=== PATIENT | female | born 1960 | race Caucasian/White ===

== ENCOUNTER 2021-09-29 05:38 | Emergency (ER) | payer OTHER, SELFPAY ==
--- NOTE | ~2021-09-29 | CT_ITS ---
EXAMINATION: CT brain wo con, CT cervical spine wo con EXAM DATE: 09/29/2021 06:13 INDICATION: Fall, head injury. Hit head on bathtub. TECHNIQUE: Spiral CT of the head was performed without contrast. Axial, coronal and sagittal images were reviewed. Spiral CT of the cervical spine was performed without contrast. Axial images were rev iewed. Coronal and sagittal reformatted images were also reviewed. The dose-length product (DLP) fo r this examination was 605.33 (accession [id number]), 421.96 (accession [id number]) mGy-cm. The exposure was tailored according to patient size, and iterative reconstruction (ASIR) was used as additional dose reduction technique. There is no prior study for comparison. FINDINGS: HEAD CT: There is no acute intraparenchymal hemorrhage. No evidence of intraparenchymal brain mass l esion. No evidence of acute infarction. There is mild to moderate prominence of the sulci and vent ricles related to cerebral atrophy. There is no mass effect or midline shift. There is no obstruct germain hydrocephalus suspected. There are no extra-axial collections. There are no acute calvarial fra ctures. The orbits are unremarkable. Soft tissue is unremarkable. The visualized sinuses and masto id air cells are well aerated. CERVICAL CT: Moderate to severe cervical arthropathy. There is no evidence of acute cervical fracture . The odontoid process is intact. Pre-dens space is normal. Prevertebral soft tissue is normal. T here are no soft tissue abnormalities identified. There is no disc space widening or traumatic verte bral body subluxation suspected. Mild cervical disc disease. A detailed level by level evaluation o f spondylosis can be added as addendum if requested. IMPRESSION: 1. No acute intracranial findings or cervical fracture. 2. Cervical arthropathy. Reviewed, dictated and finalized at location A. RANCE VERIFICATION REP IMPRESSION: 1. No acute intracranial findings or cervical fracture. 2. Cervical arthropathy.
--- NOTE | ~2021-09-29 | XR_ITS ---
EXAMINATION: XR chest 2V EXAM DATE: 09/29/2021 06:26 INDICATION: Fall, upper back pain. TECHNIQUE: Frontal and lateral projections of the chest obtained and reviewed. There is no prior ricardo dy for comparison. FINDINGS: There are cholecystectomy clips. The lungs are clear. There are no pleural effusions. Th e cardiomediastinal silhouette is within normal limits. There is no pneumothorax suspected. Mild th oracolumbar scoliosis. IMPRESSION: No acute cardiopulmonary findings. Reviewed, dictated and finalized at location A. ERY ROD ASSEMBLER
--- NOTE | ~2021-09-29 | XR_ITS ---
EXAMINATION: XR thoracic spine 3V EXAM DATE: 09/29/2021 06:26 INDICATION: Fall, upper posterior back pain. TECHNIQUE: Frontal and lateral projections of the thoracic spine as well as lateral swimmers projecti on of the upper thoracic spine for interpretation. There is no prior study for comparison. FINDINGS: Patient has mid thoracic diffuse idiopathic skeletal hyperostosis. No fracture line iden tified through this. The vertebral bodies are aligned in the AP dimension. Mild to moderate diffuse t horacic disc disease. There are cholecystectomy clips. Posterior aspects of vertebral bodies unremark able. IMPRESSION: No acute fracture identified. Reviewed, dictated and finalized at location A. WORKER
[2021-09-29 05:44] VITALS: BP 133/84; PULSE 95; RESP 18; TEMP 36.2; O2SAT 100
--- NOTE | 2021-09-29 06:02 | ED.FALL ---
HPI - Fall General Chief Complaint: Fall Stated Complaint: fall, head injury Time Seen by Provider: 09/29/21 05:43 Source: patient Mode of arrival: ambulatory Limitations: no limitations History of Present Illness HPI Narrative: Patient is a 61-year-old female presenting for evaluation of a ground-level fall. Patient states that she awakened to go to the restroom, tripped when she was in the bathroom, causing her to fall and hit her head on the bathtub. Patient denies loss of consciousness. She is reporting headache and neck pain. Patient initially reported some nausea which is resolved at the time of my assessment. She denies chest pain, shortness of breath. No hip pain or extremity pain. No focal weakness or numbness. No blurry vision or vision changes. Patient did not pass out. No prodromal symptoms prior to the fall. Patient states that she has been falling more frequently. Denies any memory issues. Denies any significant thunderclap sensation to headache. Does report mild, aching pain in the neck. Denies any lower back pain. Related Data Home Medications Medication Instructions Recorded Confirmed duloxetine mg PO 09/29/21 gabapentin 09/29/21 levothyroxine 09/29/21 lisinopril 09/29/21 metformin mg 09/29/21 mirabegron [Myrbetriq] mg PO 09/29/21 omeprazole 09/29/21 simvastatin mg 09/29/21 triamcinolone acetonide applic TOPICAL 09/29/21 09/29/21 Allergies Allergy/AdvReac Type Severity Reaction Status Date / Time tramadol Allergy Itching Verified 09/29/21 05:50 Review of Systems Review of Systems: CONSTITUTIONAL: Denies fever, chills, or sweats. EYES: Denies visual changes, redness, or discharge. ENT: Denies rhinorrhea, congestion, sore throat, or otalgia. CARDIOVASCULAR: Denies chest pain, palpitations, or edema. RESPIRATORY: Denies cough or dyspnea. GASTROINTESTINAL: Denies abdominal pain, nausea, vomiting, or diarrhea. GENITOURINARY: Denies dysuria or hematuria. SKIN: Denies rash or itching. MUSCULOSKELETAL: Reports middle thoracic back pain, denies other joint pain, or myalgia. NEUROLOGIC: Reports headache without numbness, or weakness. [facility] Social History Social History (Updated 09/29/21 @ 07:21 by Yris Lubin MD) Smoking status: Never smoker Alcohol intake: never Substance use: never Living arrangements: with family Gender identity (if verbalized by the patient): Female Exam Narrative: GENERAL: Awake, alert, conversant HEAD: Normocephalic, abrasion to left forehead, no laceration EYES: PERRLA and EOMI. ENT: Nares clear, no rhinorrhea or epistaxis. Mucous membranes moist. NECK: Supple. Positive paraspinal cervical tenderness, no midline tenderness. CHEST: No respiratory distress, breathing even and non labored HEART: Regular rate, sinus rhythm ABDOMEN:Non distended, non tender Pelvis: Pelvis is stable to anterior lateral compression. EXTREMITIES: Normal range of motion. No edema. SKIN: Warm, dry, no rash. NEURO:No focal deficits. Alert and oriented x3. Finger to nose intact bilaterally. EOMs intact without nystagmus. No facial droop/asymmetry noted bilaterally. Grimace intact. Intact sensation in face. Hearing intact bilaterally. Shoulder shrug intact. Strength 5/5 bilateral upper extremities. Strength 5/5 bilateral lower extremities. Reflexes 2+ patellar. Heel to caballero intact bilaterally. Ambulatory exam deferred. Course Vital Signs Vital signs: Vital Signs Temperature 36.2 C L 09/29/21 05:44 Pulse Rate 95 09/29/21 05:44 Respiratory Rate 18 09/29/21 05:44 Blood Pressure 133/84 09/29/21 05:44 Pulse Oximetry 100 09/29/21 05:44 Temperature 36.2 C L 09/29/21 05:44 Pulse Rate 99 09/29/21 06:35 Respiratory Rate 18 09/29/21 06:35 Blood Pressure 136/86 09/29/21 06:35 Pulse Oximetry 98 09/29/21 06:35 MDM - Fall MDM Narrative Medical decision making narrative: Patient presenting with ground-level fall after tripping in the bat
[2021-09-29] MEDS: ACETAMINOPHEN 500 MG TABLET 1000 MG PO (06:33)
[2021-09-29 06:35] VITALS: BP 136/86; PULSE 99; RESP 18; O2SAT 98
[2021-09-29 07:00] LABS: Basophils Absolute Auto 0.1 K/mm3 (0.0-0.1); Basophils Percent Auto 0.8 % (0.2-1.2); Eosinophils Absolute Auto 0.5 K/mm3 (0-0.3); Hemoglobin 12.7 g/dL (12.0-15.0); Immature Granulocyte Absolute 0.04 K/mm3 (0.00-0.031); Immature Granulocyte Percent A 0.4 % (0-0.5); Lymphocytes Absolute Auto 2.57 K/mm3 (0.9-3.2); Mean Corpuscular HGB Conc 31.8 g/dl (32-36); Mean Corpuscular Hemoglobin 30.4 pg (26-34); Mean Corpuscular Volume 95.7 fl (80-100); Mean Platelet Volume 10.9 fl (7.4-10.4); Monocytes Absolute Auto 0.9 K/mm3 (0.1-0.6); Monocytes Percent Auto 9.6 % (2.6-8.5); Neutrophils Absolute Auto 5.2 K/mm3 (1.3-6.7); Neutrophils Percent Auto 56.2 % (45.5-73.1); Platelet Count Result 222 k/mm3 (150-375); Red Blood Count 4.18 M/mm3 (4.2-5.4); Red Cell Distribution Width 13.7 % (11.5-14.5); White Blood Count 9.2 K/mm3 (4.5-10.0)
[2021-09-29 07:07] LABS: Anion Gap 9 mmol/L (8-16); Blood Urea Nitrogen 12 mg/dL (7-17); Calcium 9.6 mg/dL (8.4-10.2); Carbon Dioxide 29 mmol/L (22-30); Chloride 100 mmol/L (98-107); Estimated CRCL calculation 74 ml/min; Estimated Glomerular Filt Rate > 60; Glucose 155 mg/dL (65-110); Potassium 4.6 mmol/L (3.4-5.0); Sodium 138 mmol/L (137-145)
== END 2021-09-29 07:50 | disposition home or self-care (01) ==
PROVIDERS: Emergency Provider Emergency Medicine; PCP Internal Medicine Infectious Disease
DX: S06.0X0A Concussion without loss of consciousness, initial encounter (principal); Z79.84 Long term (current) use of oral hypoglycemic drugs; M48.8X2 Other specified spondylopathies, cervical region; W01.198A Fall on same level from slipping, tripping and stumbling with subsequent striking against other object, initial encounter
CPT/HCPCS: 36415; 70450; 71046; 72072; 72125; 80048; 85025; 99284; A9270

== ENCOUNTER 2022-06-06 08:36 | Emergency (ER) | payer OTHER, SELFPAY ==
--- NOTE | ~2022-06-06 | CT_ITS ---
EXAMINATION: CT chest abdomen pelvis w con DATE: 06/06/2022 11:05 INDICATION: Lower abdominal pain. Chills. Nausea, vomiting and diarrhea for 3 to 4 days. TECHNIQUE: Computed tomography (CT) of the chest, abdomen, and pelvis was performed with 100 CC Omnip aque 350 intravenous contrast. Automated exposure control and iterative reconstruction technique were employed. Exam dose: 708.44 mGy-cm total exam DLP. COMPARISON: 09/25/2021 2 view chest FINDINGS: CHEST CT: Multiple bilateral pulmonary nodules, mostly calcified, likely due to old pulmonary granulomatous dis ease: Approximately 4.6 x 6.2 mm right upper lobe calcified nodule consistent with old granulomatous diseas e. 3.5 mm right lower lobe nodular density (series 4 image 53) 2.8 mm right lower lobe likely calcified pulmonary nodule, likely due to old pulmonary granulomatous disease (series 4 image 59) 2.5 mm posterior lateral right lower lobe pulmonary nodule (series 4 image 69). 4 mm right lower lobe pulmonary nodule (series 4 image 73). 4.5 mm lingular probable calcified granuloma (series 4 image 66). 4 mm calcified left lower lobe pulmonary granuloma (image 69) 3 mm left lower lobe calcified pulmonary granuloma and 5.3 mm calcified pulmonary granuloma (image 71 ). 4.6 mm calcified left lower lobe pulmonary granuloma (series 4 image 75). 3 mm probable calcified left lower lobe pulmonary granuloma (image 77) Adjacent approximately 5 and 7 mm posterolateral left lower lobe basilar nodular densities (series 4 image 78). No pulmonary infiltrate or consolidation. Normal heart size. No pericardial or pleural effusion. No thoracic aortic aneurysm or dissection. No hilar or mediastinal mass lesion or lymphadenopathy. Small sliding hiatal hernia. ABDOMEN/PELVIS CT: Diffuse hepatic steatosis. No hepatic, splenic or pancreatic space-occupying mass lesion is detected. Status post cholecystectomy. No bile duct or pancreatic duct dilatation. Normal morphology of the adrenal glands. No renal mass lesion or urinary tract calculus or hydroureteronephrosis. The urinary bladder, uterus and adnexal areas are unremarkable. There is atherosclerotic calcification but normal caliber of the abdominal aorta and iliac arteries. No intraperitoneal or retroperitoneal or pelvic mass lesion or adenopathy or ascites. There is minimal diverticulosis of the sigmoid colon; no CT evidence of diverticulitis. No bowel obst ruction, bowel wall thickening, pneumatosis or intraperitoneal free air. The appendix is not visualiz ed, likely resected. No suspicious osteolytic or osteoblastic lesions are noted. There is severe degenerative change of the lumbar apophyseal joints with associated grade 1 anterolis thesis at L4-5 and L5-S1. There is moderately prominent degenerative disc disease at these levels as well. Mild anterior wedging, chronic, at T12. There is diffuse osteopenia. 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 No bowel obstruction or free air Reviewed, dictated and finalized at Location [facility]. Reviewed, dictated and finalized at location B. 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 No iliana l obstruction or free air
[2022-06-06 08:40] VITALS: BP 157/75; PULSE 81; RESP 16; TEMP 36.4; O2SAT 100
[2022-06-06 08:54] LABS: Basophils Absolute Auto 0.1 K/mm3 (0.0-0.1); Basophils Percent Auto 0.7 % (0.2-1.2); Eosinophils Absolute Auto 0.1 K/mm3 (0-0.3); Eosinophils Percent Auto 0.8 % (0-4.4); Hematocrit 45.2 % (37.0-47.0); Hemoglobin 14.3 g/dL (12.0-15.0); Immature Granulocyte Absolute 0.04 K/mm3 (0.00-0.031); Immature Granulocyte Percent A 0.3 % (0-0.5); Lymphocytes Absolute Auto 2.94 K/mm3 (0.9-3.2); Lymphocytes Percent Auto 24.6 % (18.3-44.2); Mean Corpuscular HGB Conc 31.6 g/dl (32-36); Mean Platelet Volume 10.3 fl (7.4-10.4); Monocytes Absolute Auto 0.7 K/mm3 (0.1-0.6); Monocytes Percent Auto 5.8 % (2.6-8.5); Neutrophils Absolute Auto 8.1 K/mm3 (1.3-6.7); Neutrophils Percent Auto 67.8 % (45.5-73.1); Platelet Count Result 291 k/mm3 (150-375); Red Blood Count 4.76 M/mm3 (4.2-5.4); Red Cell Distribution Width 13.7 % (11.5-14.5); White Blood Count 11.9 K/mm3 (4.5-10.0)
[2022-06-06 09:04] LABS: Alanine Aminotransferase 49 U/L (6-35); Albumin Level 4.9 g/dL (3.5-5.1); Alkaline Phosphatase 92 U/L (38-126); Anion Gap 12 mmol/L (8-16); Aspartate Amino Transferase 54 U/L (14-36); Bilirubin,Total 0.7 mg/dL (0.2-1.3); Blood Urea Nitrogen 17 mg/dL (7-17); Calcium 9.7 mg/dL (8.4-10.2); Carbon Dioxide 29 mmol/L (22-30); Chloride 97 mmol/L (98-107); Estimated CRCL calculation 70 ml/min; Estimated Glomerular Filt Rate > 60; Glucose 132 mg/dL (65-110); Lipase 65 U/L (23-300); Potassium 3.9 mmol/L (3.4-5.0); Sodium 138 mmol/L (137-145)
--- NOTE | 2022-06-06 09:50 | ED.NAVMDI ---
HPI - Nausea/Vomiting/Diarrhea General Chief complaint: Nausea/Vomiting/Diarrhea Stated complaint: abd/n/v/d Time Seen by Provider: 06/06/22 09:49 History of Present Illness HPI Narrative: pt with n/v/d no abd pain since monday ? bad food traveled to [facility] then came home no other sick contacts had appy surgery in past no f/urine chagnes/trauma/uri/cp/sob/loc. minimal to eat since Related Data Home Medications Medication Instructions Recorded Confirmed duloxetine 60 mg capsule,delayed mg PO 09/29/21 release gabapentin 300 mg capsule 09/29/21 levothyroxine 100 mcg tablet 09/29/21 lisinopril 2.5 mg tablet 09/29/21 metformin 500 mg tablet mg 09/29/21 mirabegron 25 mg tablet,extended mg PO 09/29/21 release 24 hr (Myrbetriq) omeprazole 20 mg capsule,delayed 09/29/21 release simvastatin 20 mg tablet mg 09/29/21 triamcinolone acetonide 0.1 % applic topical 09/29/21 09/29/21 topical cream Allergies Allergy/AdvReac Type Severity Reaction Status Date / Time tramadol Allergy Itching Verified 09/29/21 05:50 Review of Systems Constitutional: Comments: CONSTITUTIONAL: Denies fever, chills, or sweats. EYES: Denies visual changes, redness, or discharge. ENT: Denies rhinorrhea, congestion, sore throat, or otalgia. CARDIOVASCULAR: Denies chest pain, palpitations, or edema. RESPIRATORY: Denies cough or dyspnea. GASTROINTESTINAL: Denies abdominal pain, has nausea, vomiting, or diarrhea. GENITOURINARY: Denies dysuria or hematuria. SKIN: Denies rash or itching. MUSCULOSKELETAL: Denies back pain, joint pain, or myalgia. NEUROLOGIC: Denies headache, numbness, or weakness. PSYCHIATRIC: Denies anxiety or depression. [facility] Social History Social History (Updated 09/29/21 @ 07:21 by Yris Lubin MD) Smoking status: Never smoker Alcohol intake: never Substance use: never Gender identity (if verbalized by the patient): Female Exam Const: Other: APPEARANCE: Well appearing, no pain in distress, well-nourished. Head normocephalic atraumtaic. EYES: PERRLA/EOMI, conjunctivae very clear. NOSE: Normal no drainage EARS:TMS clear Ankur Ghosh, with good light reflex. THROAT: Pharynx clear, no exudate. NECK: Supple. No adenopathy, no masses. RESPIRATORY: Airway patent, repsirations nonlabored. Clear to auscultation bilaterally, no rales, rhonchi, wheezing. CARDIOVASCULAR: Regular rate and rhythm without murmurs rubs or gallops. ABDOMINAL: Soft, nontender, nondistended, no hepatosplenomegally MUSCULOSKELETAl: Moves all extremities. Strenght/ROM intact, No edema, No calf tenderness. NEURO: Alert. Cranial nerves II through XII intact. Good gait. Good coordination SKIN:: Warm, dry. Normal Color PSYCHIATRIC: Normal affect/mood, normal interaction with parents. Course Reevaluation(s) Reevaluation #1: doing better good with plan update on all scan results including incidental findings Vital Signs Vital signs: Vital Signs Temperature 36.4 C L 06/06/22 08:40 Pulse Rate 81 06/06/22 08:40 Respiratory Rate 16 06/06/22 08:40 Blood Pressure 157/75 H 06/06/22 08:40 Pulse Oximetry 100 06/06/22 08:40 Oxygen Delivery Room Air 06/06/22 08:40 Temperature 36.4 C L 06/06/22 08:40 Pulse Rate 81 06/06/22 08:40 Respiratory Rate 16 06/06/22 08:40 Blood Pressure 157/75 H 06/06/22 08:40 Pulse Oximetry 100 06/06/22 08:40 Oxygen Delivery Room Air 06/06/22 08:40 MDM - Nausea/Vomiting/Diarrhea Lab Data Result diagrams: 06/06/22 08:45 06/06/22 08:45 Labs: Lab Results 06/06/22 06/06/22 06/06/22 Range/Units 08:45 08:45 10:06 WBC 11.9 H (4.5-10.0) K/mm3 RBC 4.76 (4.2-5.4) M/mm3 Hgb 14.3 (12.0-15.0) g/dL Hct 45.2 (37.0-47.0) % MCV 95.0 (80-100) fl MCH 30.0 (26-34) pg MCHC 31.6 L (32-36) g/dl RDW 13.7 (11.5-14.5) % Plt Count 291 (150-375) k/mm3 MPV 10.3 (7.4-10.4) fl Immature Gran % (Auto) 0.3
--- NOTE | 2022-06-06 10:19 | PC.NURSE ---
Maikol Ramos was given a full verbal report of the pt in the ER.
[2022-06-06 10:24] LABS: Add Urine Microscopic? YES; Appearance Urine Clear (Clear); Bilirubin Urine 1+ (Negative); Blood Urine Negative (Negative); Color Urine Yellow (Yellow); Glucose Urine UA Negative (Negative); Ketones Urine 3+ mg/dL (Negative); Leukocyte Esterase Ur Negative LEU/UL (Negative); Nitrate Urine Negative (Negative); Protein Urine Trace mg/dL (Negative); Specific Grav Ur >= 1.030 (1.001-1.035); Urobilinogen Urine 0.2 mg/dL (<2.0); pH Urine 5.5 (5.0-9.0)
[2022-06-06] MEDS: SODIUM CHLORIDE 0.9% IV 1,000 ML 999 ML IV CONT (10:36)
[2022-06-06] MEDS: FAMOTIDINE 20 MG/2 ML VIAL IV PUSH (10:36)
[2022-06-06] MEDS: ONDANSETRON INJ 4 MG/2 ML VIAL IV PUSH (10:36)
[2022-06-06 10:39] LABS: Mucus Urine Rare /lpf; RBC Urine 0-2 /hpf (0-2); Squamous Epithelial Cell Urine Rare /hpf (Few); WBC Urine 0-3 /hpf
[2022-06-06 11:24] LABS: SARS-CoV-2 RNA PCR Negative
== END 2022-06-06 12:18 | disposition home or self-care (01) ==
PROVIDERS: Emergency Provider Emergency Medicine; PCP Internal Medicine Infectious Disease
DX: A08.4 Viral intestinal infection, unspecified (principal); Z20.822 Contact with and (suspected) exposure to COVID-19; Z79.84 Long term (current) use of oral hypoglycemic drugs; K44.9 Diaphragmatic hernia without obstruction or gangrene; K76.0 Fatty (change of) liver, not elsewhere classified; K57.30 Diverticulosis of large intestine without perforation or abscess without bleeding
CPT/HCPCS: 36415; 71260; 74177; 80053; 81001; 83690; 85025; 96361; 96374; 96375; 99284; C9803; J2405; J7030; Q9967; U0003; U0005